=== PATIENT | male | born 1995 | race Hispanic/Latino ===

== ENCOUNTER 2017-07-01 22:39 | Emergency (ER) | payer SELFPAY ==
[2017-07-01 22:49] VITALS: BP 142/79
[2017-07-02] MEDS ORDERED: MOTRIN ONE (01:20)
[2017-07-02] MEDS ORDERED: TYLENOL PO ONE (01:20)
[2017-07-02] MEDS ORDERED: TYLENOL ONE (01:20)
[2017-07-02] MEDS ORDERED: MOTRIN PO ONE (01:26)
== END 2017-07-02 03:00 | disposition left against medical advice (07) ==
LOC: ED 22:39
DX: M79.604 Pain in right leg (principal); M79.605 Pain in left leg; Z53.21 Procedure and treatment not carried out due to patient leaving prior to being seen by health care provider